=== PATIENT | male | born 1995 | race Asian ===

== ENCOUNTER 2016-11-05 13:59 | Emergency (ER) | payer OTHER ==
[~2016-11-05] VITALS: Ht 190.5 cm; Wt 71.4 kg
[2016-11-05 14:01] VITALS: TEMP 37.2; Ht 190.5 cm; Wt 71.4 kg
--- NOTE | 2016-11-05 15:14 | DIAGNOSTIC IMAGING REPORT ---
CHEST 2 VIEWS ROUTINE CLINICAL HISTORY: cough, fever COMPARISON STUDY: No previous studies for comparison. FINDINGS: The cardiac and mediastinal contours are normal. There is no evidence of focal pulmonary consolidation. There is no evidence of failure. No pleural effusions are visualized.[ IMPRESSION: No active disease in the chest. Electronically signed by: Sabas Sheridan M.D. 11/05/2016 3:12 PM Dictated Date/Time: 11/05/2016 3:12 PM
[2016-11-05 15:17] LABS: HEMATOCRIT 44.2 % (42-52); MEAN CELL VOLUME 85.8 fL (80-100); MEAN CORPUSCULAR HEMOGLOBIN 30.1 pg (25-34); MEAN CORPUSCULAR HGB CONC 35.1 g/dl (32-36); MEAN PLATELET VOLUME 9.2 fL (7.4-10.4); PLATELET COUNT 285 K/uL (130-400); RED BLOOD COUNT 5.15 M/uL (4.7-6.1); WHITE BLOOD COUNT 33.05 K/uL (4.8-10.8)
[2016-11-05 15:24] LABS: BUN/CREATININE RATIO 15.1 (10-20); CREATININE 0.84 mg/dl (0.60-1.40); POTASSIUM 3.6 mmol/L (3.5-5.1)
[2016-11-05 15:28] LABS: BASO % 0.1 %; BASO ABS # 0.03 K/uL (0-0.2); COMPLETE YES; IG% 0.5 %; LYMPH % 2.1 %; LYMPH ABS # 0.69 K/uL (1.2-3.4); MONO % 2.4 %; NEUT % 94.9 %
[2016-11-05 17:40] VITALS: BP 121/54; PULSE 79; O2SAT 95
--- NOTE | 2016-11-05 20:31 | EMERGENCY ROOM VISIT NOTE ---
ED Visit Note First contact with patient: 14:06 Chief Complaint: Fever. History of Present Illness: Mr. Wang is a 21-year-old [place] male who ambulates into the ED accompanied by female friend complaining of fever. Patient reports she is normally a healthy male. He reports on October 08 he develop fever of 99F that lasted for approximately 2-3 days and then self resolved. Then 12 days ago he developed a fever that was greater than 100F that lasted 3-4 days and then self resolved. He reports with his symptoms he's had a mild nonproductive cough and when he is actually afebrile he develops an occipital headache that resolves after the fever resolves. He has not treated his fevers or other symptoms during these 2 previous courses. He has not sought medical treatment for his fevers prior to today. Patient reports today, approximately 4-5 hours ago, he awoke from sleep with a fever of greater than 100F. During this. He does report he has noticed a mild increase in his cough that still remains nonproductive and he developed an occipital headache. He has difficulty describing the sensation with his headache. He does rate its intensity 5/10. The pain is nonradiating. He has not identified any aggravating or alleviating factors related to the pain. He has not taken any medications for pain prior to arrival at the hospital. He denies any associated chills, sweats, skin eruptions, skin color changes, dizziness, lightheadedness, recent head trauma, neck pain/stiffness, sinus congestion, sore throat, visual changes, hearing changes, difficulty speaking, difficulty swallowing, voice changes, shortness of breath, hemoptysis, wheezing , chest pain, palpitations, abdominal pain, nausea, vomiting, diarrhea, constipation, urinary symptoms, hematuria back/flank pain, extremity weakness/ numbness/tingling. Review of Systems: As noted above in history of present illness. All body systems were reviewed and found to be negative as noted above. Past Medical History: Unspecified stomach disorder, myocarditis. Current Medications: Patient denies. Allergies to Medications: Patient denies. Social History: Patient is [employer] student; he feels safe in his home environment; he denies tobacco and alcohol use. Physical Examination: Vital Signs: Date Time Temp Pulse Resp B/P Pulse Ox O2 Delivery O2 Flow Rate FiO2 11/05/16 17:40 79 18 121/54 95 11/05/16 16:03 104 18 122/67 94 Room Air 11/05/16 14:01 37.2 110 18 118/66 94 Room Air GENERAL: 21-year-old male in no acute distress, nontoxic-appearing, febrile and hemodynamically stable. NEUROLOGICAL: Awake, alert and oriented to person, place and time. Answering questions appropriately and following commands. Normal gait. Good hand eye coordination. No focal motor sensory deficits. SKIN: Warm, dry and pink. No soft tissue eruptions or trauma noted. HEENT: Atraumatic and normocephalic. Scalp: No tenderness, bony deformity or crepitus. PERRLA. EOMI. Sclera white and conjunctiva pink without drainage. No drainage from naris without audible congestion. Oral cavity moist and pink. Airway patent. Pharynx is nonerythematous or edematous. Speech normal. No lymphadenopathy. Trachea midline. No jugular venous distention. BACK: No tenderness over the bony cervical and thoracic spine. Full range of motion of the cervical spine. No nuchal rigidity or meningeal. No CVA tenderness. THORAX: Lungs sounds are clear to auscultation and equal bilaterally with symmetrical chest wall. No wheezing, rales or rhonchi. No crepitus, tenderness , subcutaneous air or deformities noted. HEART: Regular rate and rhythm. No gallops, rubs or murmurs are appreciated. ABDOMEN: Flat, soft and nontender. Positive bowel sounds in all quadrants. No guarding, rigidity or organomegaly. EXTREMITIES: Moves all extremities well on command and with purpose. All distal neurovascular statuses are intact and equal bilaterally. ED Course: Patient is assessed as noted above. Laboratory testing: Test 11/05/16 14:50 11/05/16 15:00 Range/Units White Blood Count 33.05 4.8-10.8 K/uL Red Blood Count 5.15 4.7-6.1 M/uL Hemoglobin 15.5 14.0-18.0 g/dL Hematocrit 44.2 42-52 % Mean Corpuscular Volume 85.8 80-100 fL Mean Corpuscular Hemoglobin 30.1 25-34 pg Mean Corpuscular Hemoglobin Concent 35.1 32-36 g/dl Platelet Count 285 130-400 K/uL Mean Platelet Volume 9.2 7.4-10.4 fL Neutrophils (%) (Auto) 94.9 % Lymphocytes (%) (Auto) 2.1 % Monocytes (%) (Auto) 2.4 % Eosinophils (%) (Auto) 0.0 % Basophils (%) (Auto) 0.1 % Neutrophils # (Auto) 31.39 1.4-6.5 K/uL Lymphocytes # (Auto) 0.69 1.2-3.4 K/uL Monocytes # (Auto) 0.78 0.11-0.59 K/uL Eosinophils # (Auto) 0.01 0-0.5 K/uL Basophils # (Auto) 0.03 0-0.2 K/uL RDW Standard Deviation 36.8 36.4-46.3 fL RDW Coefficient of Variation 11.8 11.5-14.5 % Immature Granulocyte % (Auto) 0.5 % Immature Granulocyte # (Auto) 0.15 0.00-0.02 K/uL Red Blood Cell Morphology Unremarkable Erythrocyte Sedimentation Rate 5 0-14 mm/hr Sodium Level 139 136-145 mmol/L Potassium Level 3.6 3.5-5.1 mmol/L Chloride Level 103 98-107 mmol/L Carbon Dioxide Level 26 21-32 mmol/L Anion Gap 10.0 3-11 mmol/L Blood Urea Nitrogen 13 7-18 mg/dl Creatinine 0.84 0.60-1.40 mg/dl Est Creatinine Clear Calc Drug Dose 140.5 ml/min Estimated GFR () 145.1 Estimated GFR (Non- 125.2 BUN/Creatinine Ratio 15.1 10-20 Random Glucose 100 70-99 mg/dl Calcium Level 9.0 8.5-10.1 mg/dl Influenza Type A Antigen Neg for Influ A NEG Influenza Type B Antigen Neg for Influ B NEG Bedside Troponin I 0.000 0-0.045 ng/ml Blood Culture: Pending Peripheral Blood Smear: Pending. Chest X-Rays: Were read by myself and the radiologist showing no acute infiltrates, effusions or pneumothorax. Normal heart silhouette and bony anatomy. No free air under the diaphragm. No previous to compare. Patient was reassessed multiple times during his stay in the emergency department. Patient's case was reviewed with Dr. Al; we agreed on diagnostic approach, treatment, disposition and plan. Patient was educated about tonight's findings and instructed on his treatment plan; he verbalized understanding and agreement with this plan. Clinical Impression: Fever. Leukocytosis. Disposition: Patient discharged home in stable condition accompanied by his girlfriend; prior to departure he was reassessed and subjectively reported he was feeling much better and had resolution of fever like sensations and headache. Plan: Patient was encouraged to use ibuprofen and acetaminophen as needed for pain/ fever every 6 hours or alternate every 3 hours. Patient was encouraged to follow-up at [facility] on Monday morning for results of cultures and blood smear. Patient was encouraged return to the ED for worsening/uncontrolled fevers, worsening headaches, or any new/concerning symptoms.
[2016-11-05 21:27] LABS: INFLUENZA A PCR Neg for Influ A (NEG); INFLUENZA B PCR Neg for Influ B (NEG)
== END 2016-11-05 17:42 | disposition home or self-care (01) ==
LOC: C.EDB 14:03 → C.EDA 17:42
DX: R50.9 Fever, unspecified (principal); D72.829 Elevated white blood cell count, unspecified

== ENCOUNTER → 2016-11-07 | Outpatient (CLI) | payer OTHER | END | disposition home or self-care (01) | LOC: C.LABSPEC 09:36 | PROVIDERS: ATTEND Internal Medicine | DX: D72.829 Elevated white blood cell count, unspecified (principal); R50.9 Fever, unspecified ==